=== PATIENT | male | born 1990 | race Caucasian/White ===

== ENCOUNTER 2019-12-30 09:18 | Emergency (ER) | payer OTHER ==
[~2019-12-30] VITALS: Ht 175.3 cm; Wt 156.4 kg
[2019-12-30 09:23] VITALS: BP 152/95
--- NOTE | 2019-12-30 09:24 | NUR ---
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 TO RETURN TO ROOM 11 WHEN COMPLETE.
--- NOTE | 2019-12-30 09:40 | NUR ---
pt to ultrasound with tech
== END 2019-12-30 10:47 | disposition home or self-care (01) ==
LOC: ED 10:32
DX: N43.3 Hydrocele, unspecified (principal); N50.811 Right testicular pain
CPT/HCPCS: 76870; 99284